=== PATIENT | male | born 1945 | race Caucasian/White ===

== ENCOUNTER 2022-08-13 08:11 | Day surgery (SDC) | payer MEDICARE, SELFPAY ==
[2022-08-13] VITALS (7 sets, daily range): BP systolic 148–163; BP diastolic 67–74; PULSE 73–94; RESP 16–18; TEMP 36.1–36.9; O2SAT 94–100; BMI 25.2
--- NOTE | 2022-08-13 | VOCOB_PTH ---
PATIENT: MARIBELL GOMEZ LOC: [facility] [place] U#:[id number] AGE/SX: 77/M ROOM: RE08/13/[address]: Dr. Son Mendez MD : 1945 BED: DIS: 08/13/2022 SPEC #: [id number] RECD: 08/13/22 13:05 STATUS: KRANTHI ROSELYN #: [id number] BRANDON: 08/13/22 00:[address]: Son Mendez DEPT: SURGICAL PATHOLOGY RECD BY: Cristian Merlos Tissues: Vocal cord, NOS Procedures: Surgery Specimen Level IV HEADER OPERATION: Micro direct laryngoscopy with excision polyp, vocal cords PRE-OP DIAGNOSIS: Hoarseness, polyps of vocal cord and larynx TISSUE SUBMITTED: Right vocal cord polyp MICROSCOPIC DIAGNOSIS Right vocal cord polyp, excision: Benign focal cord polyp. See comment. GEOVANNY:haley 08/14/2022 COMMENT The lesion shows extensive vascular ectasia, hemorrhage and fibrin. MICROSCOPIC DESCRIPTION Slides are reviewed. GROSS DESCRIPTION Received in fixative is one container labeled with the patient's name and designated right vocal cord polyp. The specimen consists of a piece of tenorio-pink polyp measuring 0.7 x 0.5 x 0.4 cm. The specimen is bisected and submitted entirely in one cassette. / SJ:rg 08/13/2022 :5 [facility]: [id number]
[2022-08-13] MEDS: Lactated Ringers 1,000 ML 15 ML IV (08:45)
[2022-08-13 09:10] LABS: Hematocrit 42.9 % (40-54); Hemoglobin 14.9 g/dL (13.0-16.5); Mean Corp Hgb Conc 34.7 g/dL (32-36); Mean Corpuscular Hgb 29.6 pg (27.0-32.0); Mean Corpuscular Volume 85.3 fL (80-94); Mean Platelet Vol. 8.4 fl (6.2-12.0); Platelet Count 313 K/mm3 (150-450); RBC Distribution Width CV 14.5 % (11.6-14.6); RBC Distribution Width SD 44.5 fl (35.1-43.9); Red Blood Count 5.03 M/mm3 (4.6-6.2); White Blood Count 11.8 K/mm3 (4.4-11.0)
[2022-08-13 09:39] LABS: Anion Gap 10 (5-15); BUN 12 mg/dL (7-18); BUN/Creat Ratio 12.3 RATIO (10-20); Calcium,Total 9.2 mg/dL (8.5-10.1); Chloride 96 mmol/L (98-107); Creatinine, Serum 0.98 mg/dL (0.70-1.30); EST Glomerular Filtration Rate 79 mL/min (>60); Est Glom Filt Rate - Afr Amer 96 mL/min (>60); Estimated Creatinine Clearance 67.23 ml/min; Glucose 126 mg/dL (74-106); Potassium 3.1 mmol/L (3.5-5.1); Sodium Level 135 mmol/L (136-145)
--- NOTE | 2022-08-13 09:53 | PCM.DC.SUM ---
Providers Primary Care Physician: KENDALL HOPSON Reason For Visit: MICRO LAYRNGOSCOPY WITH POLYP Medications at Discharge Home Medications amlodipine 10 mg tablet 10 mg PO DAILY 08/06/22 atorvastatin 40 mg tablet 40 mg PO DAILY 08/06/22 carvedilol 3.125 mg tablet 3.125 mg PO BID 08/06/22 fexofenadine 30 mg tablet 60 mg PO BID 08/06/22 levothyroxine 75 mcg tablet 75 mcg PO DAILY 08/06/22 lisinopril 20 mg-hydrochlorothiazide 25 mg tablet 1 tab PO DAILY 08/06/22 triamcinolone acetonide 55 mcg nasal spray aerosol (Nasacort) 1 spray intranasal DAILY 08/06/22 Weight / BMI Weight Weight: 81.9 kg Body Mass Index (BMI) 25.2 ABG / Lab / Microbiology Data Result Diagrams: 08/13/22 09:05 08/13/22 09:05 Laboratory: Laboratory Results - last 24 hr 08/13/22 09:05: WBC 11.8 H, RBC 5.03, Hgb 14.9, Hct 42.9, MCV 85.3, MCH 29.6, MCHC 34.7, RDW Std Deviation 44.5 H, RDW Coeff of Hari 14.5, Plt Count 313, MPV 8.4 08/13/22 09:05: Sodium 135 L, Potassium 3.1 L, Chloride 96 L, Carbon Dioxide 29.0, Anion Gap 10, BUN 12, Creatinine 0.98, Estim Creat Clear Calc 67.23, Est GFR (MDRD) Af Amer 96, Est GFR (MDRD) Non-Af 79, BUN/Creatinine Ratio 12.3, Glucose 126 H, Calcium 9.2 D/C Instructions Discharge Diet: No restrictions Discharge Activity: Return to Normal Activity Additional Activity Instructions: Voice rest for 3 days...then, arms length talking for a week Please Follow Up With: Son Mendez MD When: 2 weeks Meaningful Use Info Meaningful Use Diagnoses (Choose all that apply): None applicable Discharge Plan Admission Attending Provider: Son Mendez Primary Care Provider: KENDALL HOPSON Discharge Orders/Prescriptions Prescriptions: No Action atorvastatin 40 mg Tablet 40 mg PO DAILY carvedilol 3.125 mg Tablet 3.125 mg PO BID Rx Instructions: must administer with a meal/food levothyroxine 75 mcg Tablet 75 mcg PO DAILY Stacey 30 mg Tablet 60 mg PO BID amlodipine 10 mg Tablet 10 mg PO DAILY triamcinolone acetonide [Nasacort] 55 mcg Aerosol,[place] 1 spray INTRANASAL DAILY Rx Instructions: administer into each nostril lisinopril-hydrochlorothiazide 20-25 mg Tablet 1 tab PO DAILY Referrals / Follow Up: KENDALL HOPSON [Other] Disposition Disposition (needs filled in before D/C Order can be placed): Home, Self Care
[2022-08-13] MEDS: Epinephrine (1 mg/ml) 1 MG/ML VIAL (10:15)
--- NOTE | 2022-08-13 10:28 | PCM.OPRPT ---
Report of Operation Date of Procedure: 08/13/22 Pre-Operative Diagnosis: right vocal cord polyp Post-Operative Diagnosis: same Surgery/Procedure Performed:: MicroDirect laryngoscopy with excision of right vocal cord polyp Surgeon: Son Mendez Type of Anesthesia: General Anesthesiologist: Gino Sanchez Estimated Blood Loss (mL): minimal Description of Procedure: The patient was taken the operating 11/06/1721. He was placed in supine position on the operative table and given sufficient general endotracheal anesthesia. The table was turned 90 degrees in a clockwise fashion. The patient was draped sterilely. A gum guard was placed on the patient's upper dentition. A Dedo laryngoscope inserted the patient's mouth and into the pharynx. The larynx was exposed and he was placed in suspension with a Lewy suspension. The operating microscope was used at this point. A right vocal cord polyp was visualized. I grasped this with cup forceps. I then incised the mucosa with straight scissors. The polyp was then fully excised and sent for permanent section. Topical adrenaline was placed on the surface of the vocal cord. Once hemostasis was achieved all instrumentation wasremoved. blood loss minimal, replacement none. Sponge needle, and instrument count were correct at the end of the procedure.
== END 2022-08-13 12:00 | disposition home or self-care (01) ==
LOC: SDC 08:13 → AC 08:30
PROVIDERS: Referring Provider Otolaryngology; Visit Provider Otolaryngology
PROC: 0CJS8ZZ Inspection of Larynx, Via Natural or Artificial Opening Endoscopic (ICD-10-PCS; CPT 31575; principal; 2022-08-13 09:40)
DX: J38.1 Polyp of vocal cord and larynx (principal); R49.0 Dysphonia; Z79.899 Other long term (current) drug therapy
CPT/HCPCS: 31541; 80048; 85027; 88305; J7120; J2405